=== PATIENT | male | born 1950 | race Hispanic/Latino ===

== ENCOUNTER → 2018-11-01 | Outpatient (CLI) | payer MEDICARE | LOC: SLEEP 19:10 | PROVIDERS: ATTEND Otolaryngology | DX: G47.33 Obstructive sleep apnea (adult) (pediatric) (principal); G47.61 Periodic limb movement disorder | CPT/HCPCS: 95810 ==

== ENCOUNTER → 2020-10-14 | Outpatient (CLI) | payer MEDICARE | LOC: CARD 09:28 | PROVIDERS: ATTEND Family Medicine | DX: I73.9 Peripheral vascular disease, unspecified (principal) | CPT/HCPCS: 93922; 93925 ==

== ENCOUNTER → 2022-02-08 | Outpatient (CLI) | payer SELFPAY ==
[~2022-02-08] MED LIST: IOPAMIDOL 370 MG/ML 100 ML INFUS..BTL INJ ONE
[2022-02-08 11:43] LABS: CREATININE, SERUM 0.9 mg/dL (0.72-1.25)
== END ==
LOC: CT 10:59
PROVIDERS: ATTEND Internal Medicine Interventional Cardiology
DX: R07.9 Chest pain, unspecified (principal); I28.8 Other diseases of pulmonary vessels; I73.9 Peripheral vascular disease, unspecified
CPT/HCPCS: 36415; 71275; 82565; 84520; Q9967

== ENCOUNTER 2024-01-03 22:26 | Emergency (ER) | payer MEDICARE ==
[~2024-01-03] VITALS: Ht 182.9 cm; Wt 86.2 kg
[2024-01-03 23:00] VITALS: PULSE 89; RESP 18; TEMP 98.4; O2SAT 95
[2024-01-03 23:09] LABS: BASOPHILS % 0.6 % (0.0-1.0); EOSINOPHILS # (AUTO) 0.2 (0.0-0.4); EOSINOPHILS % 3.6 % (0.0-6.0); HEMATOCRIT 40.5 % (38.2-49.6); HEMOGLOBIN 13.4 g/dL (14.0-18.0); LYMPHOCYTES # (AUTO) 0.9 (1.0-3.2); LYMPHOCYTES % 17.3 % (18.0-39.1); MEAN CORPUSCULAR HEMOGLOBIN 30.8 pg (28-32); MEAN CORPUSCULAR HGB CONC 33.1 g/dL (31-35); MEAN CORPUSCULAR VOLUME 93.1 fL (81-99); MONOCYTES # (AUTO) 0.7 (0.2-0.8); MONOCYTES % 13.3 % (4.4-11.3); NEUTROPHILS # (AUTO) 3.2 (2.1-6.9); NEUTROPHILS % 64.8 % (38.7-80.0); PLATELET COUNT 115 x10e3/uL (140-360); RED BLOOD COUNT 4.35 x10e6/uL (4.3-5.7); RED CELL DISTRIBUTION WIDTH 13.7 % (11.7-14.4); WHITE BLOOD COUNT 4.97 x10e3/uL (4.8-10.8)
[2024-01-03 23:26] LABS: ALANINE AMINOTRANSFERASE 25 IU/L (0-55); ALBUMIN 3.5 g/dL (3.5-5.0); ALBUMIN/GLOBULIN RATIO 1.1 (0.8-2.0); ALKALINE PHOSPHATASE 69 IU/L (40-150); ANION GAP 13.4 mmol/L (8-16); BILIRUBIN,TOTAL 0.5 mg/dL (0.2-1.2); BLOOD UREA NITROGEN 16 mg/dL (7-26); BUN/CREATININE RATIO 19 (6-25); CALCIUM 9.4 mg/dL (8.4-10.2); CARBON DIOXIDE 25 mmol/L (22-29); CHLORIDE 105 mmol/L (98-107); CREATINE KINASE 60 IU/L (30-200); CREATININE, SERUM 0.86 mg/dL (0.72-1.25); EST GLOMERULAR FILTRATION RATE 92 ML/MIN (>=60); GLUCOSE 118 mg/dL (74-118); POTASSIUM 4.4 mmol/L (3.5-5.1); SODIUM 139 mmol/L (136-145); TOTAL PROTEIN 6.8 g/dL (6.5-8.1)
[2024-01-03 23:58] LABS: TROPONIN I < 0.001 ng/mL (0-0.300)
== END 2024-01-04 | disposition home or self-care (01) ==
LOC: ER 22:36
DX: I48.20 Chronic atrial fibrillation, unspecified (principal); I51.7 Cardiomegaly; I10 Essential (primary) hypertension; R94.31 Abnormal electrocardiogram [ECG] [EKG]
CPT/HCPCS: 36415; 71045; 80053; 82550; 83690; 83880; 84484; 85025; 93005; 99284